=== PATIENT | female | born 1985 | race Caucasian/White ===

== ENCOUNTER 2016-10-23 12:33 | Emergency (ER) | payer OTHER ==
[2016-10-23] MEDS ORDERED: HYDROCODONE/APAP 7.5/325MG TABLET PO ONE (12:43)
--- NOTE | 2016-10-23 12:48 | Emergency Department Record ---
History of Present Illness - General Stated Complaint: RT SHOULDER DISLOCATES Time Seen by Provider: 10/23/16 12:42 Source: Patient Mode of Arrival: Ambulatory Limitations: No limitations - History of Present Illness Initial Comments: 31 yo female presents to ED with a CC of "daily dislocations of the right shoulder for 3 weeks". Patient reports that she has been able to reduce her shoulder each time at home, however her pain symptoms are getting worse. Patient reports that she has not seen an orthopedist for her frequent dislocations, denies health problems otherwise. MD Complaint: Injury to:: Right Onset/Timin -: Week(s) Other Extremity Injury: Shoulder: Right Other Injuries: None Handedness: Right Place: Home Improves With: None Associated Symptoms: Denies other symptoms - Related Data Home Medications Medication Instructions Recorded Confirmed Last Taken No Home Med [NO HOME MEDS] 10/23/16 10/23/16 Unknown Allergies Allergy/AdvReac Type Severity Reaction Status Date / Time No Known Drug Allergies Allergy Verified 01/16/15 12:03 Review of Systems Constitutional: Denies: Chills, Fever, Malaise, Night sweats Eyes: Denies: Eye discharge, Eye pain ENT: Denies: Congestion, Ear pain, Epistaxis Respiratory: Denies: Cough, Dyspnea Cardiovascular: Denies: Chest pain, Dyspnea on exertion Endocrine: Denies: Fatigue, Heat or cold intolerance Gastrointestinal: Denies: Abdominal pain, Nausea, Vomiting Genitourinary: Denies: Dysuria, Frequency, Hematuria, Incontinence Musculoskeletal: Reports: Arthralgia (right shoulder pain). Denies: Back pain, Gout, Joint swelling Skin: Denies: Bruising, Change in color, Rash Neurological: Denies: Abnormal gait, Confusion, Headache, Seizure Psychiatric: Denies: Anxiety Hematological/Lymphatic: Denies: Anemia, Blood Clots Past Medical History - SOCIAL HISTORY Smoking Status: Current every day smoker - RESPIRATORY Hx Respiratory Disorders: No - CARDIOVASCULAR Hx Cardio Disorders: No - NEURO Hx Neuro Disorders: No - GI Hx GI Disorders: No - Hx Bladder Problem: Yes - ENDOCRINE Hx Diabetes: No Hx Thyroid Disease: No - MUSCULOSKELETAL Hx Musculoskeletal Disorders: No - PSYCH Hx Anxiety: Yes - HEMATOLOGY/ONCOLOGY Hx Hematology/Oncology Disorders: Yes Hx Anemia: Yes Hx Blood Disorders: Yes (factor 5) Physical Exam - General General Appearance: Alert, Oriented x3, Cooperative, Moderate distress Limitations: No limitations - Head Head exam: Atraumatic, Normocephalic, Normal inspection Head exam detail: negative: Abrasion, Contusion, Marie's sign, General tenderness, Hematoma, Laceration - Eye Eye exam: Normal appearance. negative: Conjunctival injection, Periorbital swelling, Periorbital tenderness, Scleral icterus - ENT Ear exam: negative: Auricular hematoma, Auricular trauma Nasal Exam: negative: Active bleeding, Discharge, Dried blood, Foreign body Mouth exam: negative: Drooling, Laceration, Muffled voice, Tongue elevation - Neck Neck exam: Normal inspection. negative: Meningismus, Tenderness - Respiratory Respiratory exam: Normal lung sounds bilaterally. negative: Rales, Respiratory distress, Rhonchi, Stridor - Cardiovascular Cardiovascular Exam: Regular rate, Normal rhythm, Normal heart sounds - GI/Abdominal GI/Abdominal exam: Soft. negative: Rebound, Rigid, Tenderness - Rectal Rectal exam: Deferred - exam: Deferred - Extremities Extremities exam: Tenderness, Other (TTP along the anterior aspect of the right shoulder, no evidence for dislocation currently, strong distal radial pulse on exam, band instrument repairer strength 5/5.). negative: Calf tenderness, Pedal edema - Back Back exam: Denies: CVA tenderness (R), CVA tenderness (L) - Neurological Neurological exam: Alert, Normal gait, Oriented X3 - Psychiatric Psychiatric exam: Normal affect, Normal mood - Skin Skin exam: Normal color. negative: Abrasion Type of lesion: negative: abrasion Course Vital Signs 10/23/16 12:40 Temperature 97.9 F Pulse Rate [ 79 Pulse Ox Probe] Respiratory 12 Rate Blood Pressure 119/68 [Left Arm] Pulse Ox 100 - Reevaluation(s) Reevaluation #1: 10/23/16 12:52 MAPS reviewed, patient had been receiving Oxycodone 325/7.5 #[address] Michelle as well as Dr. Barba, more recently Dr. Díaz (3 orthopedic surgeons). 325/5 mg #40 09/08/16. Reevaluation #2: 10/23/16 13:31 Right shoulder: No acute process Patient was updated on her radiology results, will place in sling for support with instructions to follow-up with Dr. Barba next week. Patient appears stable for discharge at this time. Disposition Disposition: Discharge Clinical Impression: Shoulder pain, right Qualifiers: Chronicity: acute Qualified Code(s): M25.511 - Pain in right shoulder Disposition: Home, Self-Care Condition: (2) Stable Instructions: Shoulder Pain, Apron Man (GEN) Additional Instructions: Return to ED if your symptoms worsen or if you have any concerns. Follow-up with your orthopedic surgeon for further evaluation of your shoulder pain symptoms in 3-5 days. Time of Disposition: 13:32
--- NOTE | 2016-10-26 15:16 | RADIOLOGY REPORT ---
DATE: 10/23/2016. EXAM: RIGHT SHOULDER. HISTORY: Pain. TECHNIQUE: Three views of the right shoulder. COMPARISON: None. ENCOUNTER: Initial. FINDINGS: Negative for fracture or dislocation. The soft tissues are unremarkable. Joint spaces are preserved. IMPRESSION: NEGATIVE EXAMINATION. JOB NUMBER: [id number] MTDD
== END 2016-10-23 13:42 | disposition home or self-care (01) ==
LOC: ER 12:33
DX: M25.511 Pain in right shoulder (principal)
CPT/HCPCS: 99283

== ENCOUNTER 2016-11-13 12:34 | Emergency (ER) | payer OTHER ==
--- NOTE | 2016-11-13 12:44 | Emergency Department Record ---
History of Present Illness - General Chief Complaint: Chest Pain Stated Complaint: CHEST PAIN/SOB/MULTIPLE SYMPTOMS Time Seen by Provider: 11/13/16 12:42 Source: Patient, RN notes reviewed - History of Present Illness Initial Comments: sob and dizziness, coughing and history of coag disorder Leiden 5 deficiency and she is not on anticoagualation therapy now. Patient only had one blood clot so they stopped the coumadin years ago. Chest pain started 3 days ago and same as the dyspnea. right leg started hurting 4 days ago in the calf. the chest pain is reproducible on palpation of the sternum and left anterior chest wall. right calf is painful on palpation and also the right thigh is painful with bruises on the lateral right thigh and she doesn't recall doing anything to cause the bruises. No cigs and stopped 2015 - Related Data Home Medications Medication Instructions Recorded Confirmed Last Taken No Home Med [NO HOME MEDS] 10/23/16 11/13/16 Unknown Allergies Allergy/AdvReac Type Severity Reaction Status Date / Time No Known Drug Allergies Allergy Verified 01/16/15 12:03 Review of Systems Reviewed: No additional complaints except as noted below Constitutional: Reports: As per HPI. Denies: Chills, Fever, Malaise, Night sweats, Weakness, Weight change Eyes: Reports: As per HPI. Denies: Eye discharge, Eye pain, Photophobia, Vision change ENT: Reports: As per HPI. Denies: Congestion, Dental pain, Ear pain, Epistaxis , Hearing loss, Throat pain Respiratory: Reports: As per HPI, Cough, Dyspnea. Denies: Hemoptysis, Stridor, Wheezes Cardiovascular: Reports: As per HPI, Chest pain. Denies: Arrhythmia, Dyspnea on exertion, Edema, Murmurs, Orthopnea, Palpitations, Paroxysmal nocturnal dyspnea, Rheumatic Fever, Syncope Endocrine: Reports: As per HPI. Denies: Fatigue, Heat or cold intolerance, Polydipsia, Polyuria Gastrointestinal: Reports: As per HPI. Denies: Abdominal pain, Constipation, Diarrhea, Hematemesis, Hematochezia, Melena, Nausea, Vomiting Genitourinary: Reports: As per HPI. Denies: Abnormal menses, Discharge, Dyspareunia, Dysuria, Frequency, Hematuria, Incontinence, Retention, Urgency Musculoskeletal: Reports: As per HPI. Denies: Arthralgia, Back pain, Gout, Joint swelling, Myalgia, Neck pain Skin: Reports: As per HPI. Denies: Bruising, Change in color, Change in hair/ nails, Lesions, Pruritus, Rash Neurological: Reports: As per HPI. Denies: Abnormal gait, Confusion, Headache, Numbness, Paresthesias, Seizure, Tingling, Tremors, Vertigo, Weakness Psychiatric: Reports: As per HPI. Denies: Anxiety, Auditory hallucinations, Depression, Homicidal thoughts, Suicidal thoughts, Visual hallucinations Hematological/Lymphatic: Reports: As per HPI. Denies: Anemia, Blood Clots, Easy bleeding, Easy bruising, Swollen glands Past Medical History - SOCIAL HISTORY Smoking Status: Current every day smoker - RESPIRATORY Hx Respiratory Disorders: No - CARDIOVASCULAR Hx Cardio Disorders: No - NEURO Hx Neuro Disorders: No - GI Hx GI Disorders: No - Hx Bladder Problem: Yes - ENDOCRINE Hx Diabetes: No Hx Thyroid Disease: No - MUSCULOSKELETAL Hx Musculoskeletal Disorders: No - PSYCH Hx Anxiety: Yes - HEMATOLOGY/ONCOLOGY Hx Hematology/Oncology Disorders: Yes Hx Anemia: Yes Hx Blood Disorders: Yes (factor 5) Physical Exam - General General Appearance: Alert, Oriented x3, Cooperative, No acute distress - Head Head exam: Normal inspection - Eye Eye exam: Normal appearance, PERRL Pupils: Normal accommodation - ENT ENT exam: Normal exam, Mucous membranes moist, Normal external ear exam, Normal orophraynx, TM's normal bilaterally Ear exam: Normal external inspection. negative: External canal tenderness Nasal Exam: Normal inspection. negative: Discharge, Sinus tenderness Mouth exam: Normal external inspection, Tongue normal Teeth exam: Normal inspection. negative: Dental caries Throat exam: Normal inspection. negative: Tonsillar erythema, Tonsillar exudate - Neck Neck exam: Normal inspection, Full ROM. negative: Tenderness - Respiratory Respiratory exam: Normal lung sounds bilaterally. negative: Respiratory distress - Cardiovascular Cardiovascular Exam: Regular rate, Normal rhythm, Normal heart sounds - GI/Abdominal GI/Abdominal exam: Soft, Normal bowel sounds. negative: Tenderness - Rectal Rectal exam: Deferred - exam: Deferred - Extremities Extremities exam: Normal inspection, Full ROM, Normal capillary refill. negative: Tenderness - Back Back exam: Reports: Normal inspection, Full ROM. Denies: Muscle spasm, Rash noted, Tenderness - Neurological Neurological exam: Alert, Normal gait, Oriented X3, Reflexes normal - Psychiatric Psychiatric exam: Normal affect, Normal mood - Skin Skin exam: Dry, Intact, Normal color, Warm Course Discussed case with Dr. Capps ED physician at [facility] and will transfer her to [facility] ED for venous Doppler and second set of cardiac enzymes. No venous Doppler here today. Medical Decision Making - Data Complexity MDM Data: Labs Ordered and/or Reviewed (cardiac enzymes negative), X-Ray Ordered and/or Reviewed (CT neg for PE ), EKG Ordered and/or Reviewed (No acute changes) - Lab Data Result diagrams: 11/13/16 12:57 11/13/16 12:57 Disposition Clinical Impression: Right leg pain, Dyspnea Chest pain Qualifiers: Chest pain type: unspecified Qualified Code(s): R07.9 - Chest pain, unspecified Disposition: Acute Care Hospital Transfer Condition: (1) Good Forms: Patient Portal Access Time of Disposition: 14:58
[2016-11-13] MEDS ORDERED: 0.9 % SODIUM CHLORIDE 1000ML 1,000 ML IV PRN (12:46)
[2016-11-13 13:09] LABS: BASO % 0.2 % (0-6); EOS % 1.7 % (0-6); GRAN % 56.5 % (47-80); HEMATOCRIT 43.3 % (35.0-47.0); HEMOGLOBIN 14.6 gm/dl (11.6-16.0); LYMPH % 32.5 % (16-45); MEAN CELL VOLUME 91.4 fl (81-97); MEAN CORPUSCULAR HEMOGLOBIN 30.8 pg (27-33); MEAN CORPUSCULAR HGB CONC 33.7 g/dl (32-36); MEAN PLATELET VOLUME 10.9 fl (7.4-10.4); MONO % 9.1 % (0-9); PLATELET COUNT 286 K/uL (130-400); RED BLOOD COUNT 4.74 M/uL (3.80-5.40); RED CELL DISTRIBUTION WIDTH 13.2 % (11.5-14.5); WHITE BLOOD COUNT W/O DIFF 4.6 K/uL (4.2-12.2)
[2016-11-13 13:17] LABS: BLOOD UREA NITROGEN 3 mg/dL (7-17); CREATININE 0.7 mg/dL (0.52-1.04); EST GLOMERULAR FILTRATION RATE > 60 ml/min; GLUCOSE,RANDOM 105 mg/dL (70-110)
[2016-11-13 13:29] LABS: CKMB < 0.2 ug/L (0-6); TROPONIN I < 0.012 ng/mL (0.00-0.034)
[2016-11-13] MEDS ORDERED: KETOROLAC 30 MG/ML VIAL IVP ONE (14:17)
[2016-11-13] MEDS ORDERED: ENOXAPARIN 100 MG/ML SYR SQ ONE (14:31)
== END 2016-11-13 16:15 | disposition short-term general hospital (02) ==
LOC: ER 12:34
DX: R07.9 Chest pain, unspecified (principal); R06.00 Dyspnea, unspecified; M79.661 Pain in right lower leg; M79.651 Pain in right thigh; D68.2 Hereditary deficiency of other clotting factors; R42 Dizziness and giddiness
CPT/HCPCS: 71020; 71275; 80048; 82553; 84484; 85025; 85379; 85730; 93005; 93010; 96372; 96374; 99285; J1650; J1885

== ENCOUNTER 2017-01-24 12:05 | Emergency (ER) | payer OTHER ==
--- NOTE | 2017-01-24 12:22 | Emergency Department Record ---
History of Present Illness - General Chief Complaint: Chest Pain Stated Complaint: CHEST PAIN Time Seen by Provider: 01/24/17 12:13 Source: Patient Mode of Arrival: Ambulatory Limitations: No limitations - History of Present Illness Initial Comments: 31 yo female presents right right/chest pain and right leg pain. The pain started yesterday in the leg and the ribs. The pains have progressed since then. It hurts to cough, move or breath. The leg is sore without any known injury. She does have Factor V Leiden Deficiency. She had an ovarian clot age 18. She was treated with Coumadin for one year and then taken off. No recurrent clots since then. MD Complaint: Chest pain -: Days(s) (2) Onset: During rest Pain Location: Right chest Severity: Moderate Quality: Aching Consistency: Constant Improves With: Remaining still Worsens With: Movement, Palpation Other Symptoms: Other (None) - Related Data Previous Rx's Medication Instructions Recorded Hydrocodone/Acetaminophen [[place]land 1 each PO Q8H #10 tablet 01/24/17 5-325 Tablet] Naproxen [Naprosyn] 500 mg PO Q12H #20 tablet 01/24/17 Allergies Allergy/AdvReac Type Severity Reaction Status Date / Time No Known Drug Allergies Allergy Verified 01/24/17 12:15 Review of Systems Constitutional: Denies: Chills, Fever, Malaise, Weakness Eyes: Denies: Eye discharge ENT: Denies: Congestion, Epistaxis, Throat pain Respiratory: Denies: Cough, Dyspnea, Hemoptysis, Stridor, Wheezes Cardiovascular: Reports: As per HPI, Chest pain. Denies: Palpitations, Syncope Endocrine: Denies: Fatigue Gastrointestinal: Denies: Abdominal pain, Diarrhea, Hematemesis, Hematochezia, Nausea, Vomiting Genitourinary: Denies: Dysuria, Urgency Musculoskeletal: Reports: Myalgia (RLE). Denies: Arthralgia, Back pain, Joint swelling, Neck pain Skin: Denies: Change in color Neurological: Denies: Confusion, Headache Psychiatric: Denies: Anxiety Hematological/Lymphatic: Denies: Easy bleeding, Easy bruising, Swollen glands Past Medical History - SOCIAL HISTORY Smoking Status: Current every day smoker - RESPIRATORY Hx Respiratory Disorders: No - CARDIOVASCULAR Hx Cardio Disorders: No - NEURO Hx Neuro Disorders: No - GI Hx GI Disorders: No - Hx Bladder Problem: Yes - ENDOCRINE Hx Diabetes: No Hx Thyroid Disease: No - MUSCULOSKELETAL Hx Musculoskeletal Disorders: No - PSYCH Hx Anxiety: Yes - HEMATOLOGY/ONCOLOGY Hx Hematology/Oncology Disorders: Yes Hx Anemia: Yes Hx Blood Disorders: Yes (factor 5) Physical Exam - General General Appearance: Alert, Oriented x3, Cooperative, No acute distress Limitations: No limitations - Head Head exam: Normal inspection - Eye Eye exam: Normal appearance, PERRL. negative: Conjunctival injection, Periorbital swelling - ENT ENT exam: Normal exam Ear exam: Normal external inspection Nasal Exam: Normal inspection Mouth exam: Normal external inspection Teeth exam: Normal inspection - Neck Neck exam: Normal inspection, Full ROM. negative: Lymphadenopathy, Tenderness - Respiratory Respiratory exam: Normal lung sounds bilaterally, Chest wall tenderness (right lower chest tender to palpation over the ribs, no erythema). negative: Accessory muscle use, Decreased breath sounds, Prolonged expiratory, Respiratory distress, Rhonchi, Stridor - Cardiovascular Cardiovascular Exam: Regular rate, Normal rhythm, Normal heart sounds Peripheral Pulses: 2+: Radial (R), Radial (L) - GI/Abdominal GI/Abdominal exam: Soft. negative: Distended, Guarding, Rigid, Tenderness - Rectal Rectal exam: Deferred - exam: Deferred - Extremities Extremities exam: Normal inspection, Full ROM, Normal capillary refill, Tenderness - Back Back exam: Reports: Normal inspection, Full ROM. Denies: Muscle spasm, Rash noted, Tenderness - Neurological Neurological exam: Alert, Normal gait, Oriented X3 - Psychiatric Psychiatric exam: Normal affect, Normal mood. negative: Agitated, Anxious - Skin Skin exam: Dry, Intact, Normal color, Warm Course - Reevaluation(s) Reevaluation #1: EKG 1217 NSR rate 54, intervals normal, axis normal, ST Normal. No changes from the 11/13/16 EKG. 01/24/17 12:33 Reevaluation #2: The D-Dimer was negative No acute changes on the CBC EMR reviewed. Normal CTA chest 2 months ago 11/201601/24/17 13:12 Reevaluation #3: The venous doppler of her painful right leg was negative for acute abnormality of DVT. 01/24/17 15:09 Reevaluation #4: The CXR was read as no acute process and unchanged from 11/2016 The D-dimer is negative, the vitals are normal range, the CXR is negative, the EKG is normal and unchanged. The examination is completely reproducible pain making this atypical for underlying CAD or PVT/PE. Likely musculo-skeletal in nature. 01/24/17 15:10 Reevaluation #5: The results were discussed with the patient We discussed close follow up and reasons to return to the ED 01/24/17 15:19 Medical Decision Making - Lab Data Result diagrams: 01/24/17 12:38 01/24/17 12:38 Disposition Disposition: Discharge Clinical Impression: Right leg pain, Right-sided chest wall pain Disposition: Home, Self-Care Condition: (1) Good Instructions: Chest Pain (ED) Additional Instructions: Call your doctor for a recheck this week to review this ER visit and the results Return if worse, short of breath, fever or any new concerns Prescriptions: Hydrocodone/Acetaminophen [Orland 5-325 Tablet] 1 each PO Q8H #10 tablet Naproxen [Naprosyn] 500 mg PO Q12H #20 tablet Forms: Patient Portal Access Time of Disposition: 15:12
[2017-01-24] MEDS ORDERED: KETOROLAC 30 MG/ML VIAL IVP ONE (12:26)
[2017-01-24 12:47] LABS: BASO % 0.4 % (0-6); EOS % 2.2 % (0-6); HEMATOCRIT 39.4 % (35.0-47.0); HEMOGLOBIN 13.1 gm/dl (11.6-16.0); LYMPH % 31.4 % (16-45); MEAN CELL VOLUME 90.8 fl (81-97); MEAN CORPUSCULAR HEMOGLOBIN 30.2 pg (27-33); MEAN CORPUSCULAR HGB CONC 33.2 g/dl (32-36); MEAN PLATELET VOLUME 10.6 fl (7.4-10.4); PLATELET COUNT 286 K/uL (130-400); RED BLOOD COUNT 4.34 M/uL (3.80-5.40); RED CELL DISTRIBUTION WIDTH 12.9 % (11.5-14.5); WHITE BLOOD COUNT W/O DIFF 4.6 K/uL (4.2-12.2)
[2017-01-24 12:59] LABS: ALB/GLOB RATIO 1.3 (1.1-1.8); ALBUMIN 3.9 gm/dL (3.5-5.0); ALKALINE PHOSPHATASE 52 U/L (38-126); ALT/SGPT 15 U/L (9-52); ANION GAP 7.1 (7-16); AST/SGOT 12 U/L (14-36); BILIRUBIN,TOTAL 0.41 mg/dL (0.2-1.3); CARBON DIOXIDE 27.9 mmol/L (22-30); CREATININE 0.6 mg/dL (0.52-1.04); EST GLOMERULAR FILTRATION RATE > 60 ml/min; GLUCOSE,RANDOM 85 mg/dL (70-110); TOTAL PROTEIN 6.9 gm/dL (6.3-8.2)
[2017-01-24 13:01] LABS: BLOOD UREA NITROGEN 2 mg/dL (7-17); INR 0.95; PARTIAL THROMBOPLASTIN TIME 28.1 SECONDS (24.5-39.1); PROTHROMBIN TIME (PATIENT) 10.7 SECONDS (9.5-12.1)
[2017-01-24 13:02] LABS: D-DIMER 0.35 mg/L FEU (0-0.59)
[2017-01-24] MEDS ORDERED: POTASSIUM CHLORIDE 20 MEQ TABLET PO ONE (13:20)
[2017-01-24] MEDS ORDERED: MORPHINE SULFATE 5 MG/ML PFS IVP ONE (13:31)
--- NOTE | 2017-01-25 10:41 | US VENOUS DOPPLER REPORT ---
EXAM: VENOUS DOPPLER ULTRASOUND OF THE RIGHT LOWER EXTREMITY HISTORY: RIGHT LOWER LEG PAIN. HISTORY OF CLOTTING DISORDER. TECHNIQUE: Gonzalez scale, color Doppler, and Duplex Doppler examination of the deep venous structures of the right lower extremity were performed from the level of the common femoral vein through the lower leg veins. Comparison: None. FINDINGS: Gonzalez scale images demonstrates all of the deep venous structures in the right lower extremity to be anechoic and compressible. Normal venous waveforms are noted within the common femoral vein, greater saphenous vein, superficial femoral vein, popliteal vein, anterior tibial veins, posterior tibial veins, and peroneal veins. These waveforms are augmentable from the popliteal vein level proximally. IMPRESSION: NO EVIDENCE OF DEEP VENOUS THROMBOSIS WITHIN THE RIGHT LOWER EXTREMITY. JOB NUMBER: [id number] [facility]
--- NOTE | 2017-01-25 10:45 | RADIOLOGY REPORT ---
EXAM: CHEST, TWO VIEWS HISTORY: RIGHT SIDED LOWER RIB PAIN FOR THREE DAYS. TECHNIQUE: Upright PA and lateral views of the chest were obtained. Comparison: Two view chest radiographic examination dated 11/13/16. FINDINGS: The cardiomediastinal silhouette remains normal in size and configuration. The lungs and pleural spaces are clear. The osseous structures are intact. IMPRESSION: NO RADIOGRAPHIC EVIDENCE OF ACUTE CARDIOPULMONARY DISEASE, UNCHANGED SINCE 11/13/16. JOB NUMBER: [id number] MTDD
== END 2017-01-24 15:33 | disposition home or self-care (01) ==
LOC: ER 12:05
DX: R07.89 Other chest pain (principal); M79.661 Pain in right lower leg; D68.51 Activated protein C resistance
CPT/HCPCS: 99284 ×2; 96374; 96375; 85025; 85730; 85610; 80053; 81025; 85379; 71020; 93971; 93005; 93010; J1885; J2270

== ENCOUNTER 2018-03-04 11:40 | Emergency (ER) | payer OTHER ==
--- NOTE | 2018-03-04 12:13 | Emergency Department Record ---
History of Present Illness - General Chief Complaint: Back Pain/Injury Stated Complaint: BACK PAIN Time Seen by Provider: 03/04/18 12:01 Source: Patient, RN notes reviewed - History of Present Illness Initial Comments: back pain which started one week ago and she has fibromyalgia and no falls and she used to see Dr. Wilson one year ago. Patient denies a cough and she walks around the room slowly and standing flexion to 45 degrees and she has muscle spasms in her back bilaterally and the entire back. Patient has not seen any medical people for this problems this week. MD Complaint: Back pain Onset/Timin -: Days(s) Similar Symptoms Previously: Yes Place: Home Severity: Moderate Severity scale (1-10): 10 Quality: Aching Consistency: Constant Improves With: None Worsens With: Movement Context: Unknown - Related Data Home Medications Medication Instructions Recorded Confirmed Last Taken Aspirin 325 mg PO DAILY 03/04/18 03/04/18 1 Day Ago ~03/03/18 Previous Rx's Medication Instructions Recorded Cyclobenzaprine HCl [Flexeril] 10 mg PO TID #30 tablet 03/04/18 Naproxen [Naprosyn] 500 mg PO BID #30 tablet 03/04/18 Allergies Allergy/AdvReac Type Severity Reaction Status Date / Time No Known Drug Allergies Allergy Verified 03/04/18 11:50 Travel Screening - Travel/Exposure Within Last 30 Days Have you traveled within the last 30 days?: No - Travel/Exposure Within Last Year Have you traveled outside the [place] in the last year?: No - Additonal Travel Details Have you been exposed to anyone with a communicable illness?: No - Travel Symptoms Symptom Screening: None Review of Systems Reviewed: No additional complaints except as noted below Constitutional: Reports: As per HPI. Denies: Chills, Fever, Malaise, Night sweats, Weakness, Weight change Eyes: Reports: As per HPI. Denies: Eye discharge, Eye pain, Photophobia, Vision change ENT: Reports: As per HPI. Denies: Congestion, Dental pain, Ear pain, Epistaxis , Hearing loss, Throat pain Respiratory: Reports: As per HPI. Denies: Cough, Dyspnea, Hemoptysis, Stridor, Wheezes Cardiovascular: Reports: As per HPI. Denies: Arrhythmia, Chest pain, Dyspnea on exertion, Edema, Murmurs, Orthopnea, Palpitations, Paroxysmal nocturnal dyspnea, Rheumatic Fever, Syncope Endocrine: Reports: As per HPI. Denies: Fatigue, Heat or cold intolerance, Polydipsia, Polyuria Gastrointestinal: Reports: As per HPI. Denies: Abdominal pain, Constipation, Diarrhea, Hematemesis, Hematochezia, Melena, Nausea, Vomiting Genitourinary: Reports: As per HPI. Denies: Abnormal menses, Discharge, Dyspareunia, Dysuria, Frequency, Hematuria, Incontinence, Retention, Urgency Musculoskeletal: Reports: As per HPI, Back pain. Denies: Arthralgia, Gout, Joint swelling, Myalgia, Neck pain Skin: Reports: As per HPI. Denies: Bruising, Change in color, Change in hair/ nails, Lesions, Pruritus, Rash Neurological: Reports: As per HPI. Denies: Abnormal gait, Confusion, Headache, Numbness, Paresthesias, Seizure, Tingling, Tremors, Vertigo, Weakness Psychiatric: Reports: As per HPI. Denies: Anxiety, Auditory hallucinations, Depression, Homicidal thoughts, Suicidal thoughts, Visual hallucinations Hematological/Lymphatic: Reports: As per HPI. Denies: Anemia, Blood Clots, Easy bleeding, Easy bruising, Swollen glands Past Medical History - SOCIAL HISTORY Smoking Status: Former smoker Alcohol Use: None Drug Use: None - RESPIRATORY Hx Respiratory Disorders: No - CARDIOVASCULAR Hx Cardio Disorders: No Hx Irregular Heartbeat: Yes (extra beat) - NEURO Hx Neuro Disorders: No - GI Hx GI Disorders: No - Hx Genitourinary Disorders: Yes Hx Bladder Problem: Yes - ENDOCRINE Hx Diabetes: No Hx Thyroid Disease: No - MUSCULOSKELETAL Hx Musculoskeletal Disorders: No - PSYCH Hx Anxiety: Yes - HEMATOLOGY/ONCOLOGY Hx Hematology/Oncology Disorders: Yes Hx Anemia: Yes Hx Blood Disorders: Yes (factor 5) Family Medical History Any Significant Family History?: Yes Hx Cancer: Mother *Cancer Comment: times Physical Exam - General General Appearance: Alert, Oriented x3, Cooperative, No acute distress - Head Head exam: Normal inspection - Eye Eye exam: Normal appearance, PERRL Pupils: Normal accommodation - ENT ENT exam: Normal exam, Mucous membranes moist, Normal external ear exam, Normal orophraynx, TM's normal bilaterally Ear exam: Normal external inspection. negative: External canal tenderness Nasal Exam: Normal inspection. negative: Discharge, Sinus tenderness Mouth exam: Normal external inspection, Tongue normal Teeth exam: Normal inspection. negative: Dental caries Throat exam: Normal inspection. negative: Tonsillar erythema, Tonsillar exudate - Neck Neck exam: Normal inspection, Full ROM. negative: Tenderness - Respiratory Respiratory exam: Normal lung sounds bilaterally. negative: Respiratory distress - Cardiovascular Cardiovascular Exam: Regular rate, Normal rhythm, Normal heart sounds - GI/Abdominal GI/Abdominal exam: Soft, Normal bowel sounds. negative: Tenderness - Rectal Rectal exam: Deferred - exam: Deferred - Extremities Extremities exam: Normal inspection, Full ROM, Normal capillary refill. negative: Tenderness - Back Back exam: Reports: Normal inspection, Muscle spasm, Tenderness. Denies: Rash noted - Neurological Neurological exam: Alert, Normal gait, Oriented X3, Reflexes normal - Psychiatric Psychiatric exam: Normal affect, Normal mood - Skin Skin exam: Dry, Intact, Normal color, Warm Course Vital Signs 03/04/18 11:42 Temperature 97.9 F Pulse Rate 74 Respiratory 16 Rate Blood Pressure 130/93 Pulse Ox 100 - Reevaluation(s) Reevaluation #1: feeling better 03/04/18 12:59 Disposition Clinical Impression: Fibromyalgia Back strain Qualifiers: Encounter type: initial encounter Qualified Code(s): S39.012A - Strain of muscle, fascia and tendon of lower back, initial encounter Disposition: Home, Self-Care Condition: (1) Good Instructions: Low Back Strain (ED), Fibromyalgia (ED) Additional Instructions: follow up with a family DrCharity in one week Prescriptions: Cyclobenzaprine HCl [Flexeril] 10 mg PO TID #30 tablet Naproxen [Naprosyn] 500 mg PO BID #30 tablet Forms: Patient Portal Access Time of Disposition: 13:00 Quality - Quality Measures Quality Measures: N/A - Blood Pressure Screening Does Patient Have Any of the Following: No Blood Pressure Classification: Hypertensive Reading Systolic Measurement: 130 Diastolic Measurement: 93 Screening for High Blood Pressure: < Pre-Hypertensive BP, F/U Documented > [ [id number]] Pre-Hypertensive Follow-up Interventions: Referral to alternative/primary care provider.
[2018-03-04] MEDS ORDERED: ORPHENADRINE CITRATE 60MG/2ML VIAL IM ONE (12:14)
[2018-03-04] MEDS ORDERED: KETOROLAC 60 MG/2 ML VIAL IM STA (12:14)
== END 2018-03-04 13:07 | disposition home or self-care (01) ==
LOC: ER 11:40
DX: S39.012A Strain of muscle, fascia and tendon of lower back, initial encounter (principal); M79.7 Fibromyalgia; D68.51 Activated protein C resistance; X58.XXXA Exposure to other specified factors, initial encounter; Y93.9 Activity, unspecified; Y92.9 Unspecified place or not applicable; Y99.9 Unspecified external cause status
CPT/HCPCS: 96372; 99283; J1885; J2360